=== PATIENT | male | born 1970 | race Caucasian/White ===

== ENCOUNTER → 2017-12-05 12:33 | Outpatient (CLI) | payer MEDICAID, SELFPAY ==
[2017-12-05 15:31] LABS: Alanine Aminotransferase 35 U/L (12-78); Albumin Level 4.4 gm/dL (3.4-5.0); Albumin/Globulin Ratio 1.5 (1.1-1.8); Alkaline Phosphatase 49 U/L (46-116); Anion Gap 15.1 mEq/L (5-15); Aspartate Amino Transferase 21 U/L (15-37); Bilirubin,Total 0.7 mg/dL (0.2-1.0); Blood Urea Nitrogen 11 mg/dL (7-18); Calcium 9.1 mg/dL (8.5-10.1); Carbon Dioxide 29 mmol/L (21.0-32.0); Chloride 103 mmol/L (98-107); Chol/HDL Ratio 5.5 (1-3.5); Cholesterol 264 mg/dL (140-200); Creatinine,Serum 0.98 mg/dL (0.70-1.30); Estimated Glomerular Filt Rate 82 ml/min (>60); GFR (African American) 99 ML/MIN (>60); Glucose 86 mg/dL (74-106); HDL Cholesterol 48 mg/dL (27-67); LDL Cholesterol 188 mg/dL (0-130); Potassium 4.1 mmoL/L (3.5-5.1); Sodium 143 mmol/L (136-145); Total Protein,Serum 7.4 gm/dL (6.4-8.2); Triglycerides 142 mg/dL (30-200); VLDL Cholesterol 28 mg/dL (0-40)
== END ==
PROVIDERS: PCP Nurse Practitioner Family; Visit Provider Nurse Practitioner Family
DX: Z00.00 Encounter for general adult medical examination without abnormal findings (principal)
CPT/HCPCS: 36415; 80053; 80061

== ENCOUNTER → 2018-02-16 08:05 | Outpatient (CLI) | payer MEDICAID, SELFPAY ==
[2018-02-16 08:28] LABS: Basophils % 0.6 % (0.1-2.0); Eosinophils # 0.4 K/mm3 (0.0-0.4); Eosinophils % 7.4 % (0.1-12.0); Hematocrit 43.9 % (42.0-52.0); Lymphocytes # 1.5 K/mm3 (0.7-4.5); Lymphocytes % 27.1 K/mm3 (10-50); Mean Corpuscular HGB Conc 34.2 g/dL (31.8-35.4); Mean Corpuscular Hemoglobin 30.5 pg (27.0-31.2); Mean Platelet Volume 7.1 fl (7.4-10.4); Monocytes # 0.5 K/mm3 (0.1-1.0); Monocytes % 8.2 % (1.7-9.3); Neutrophils # 3.2 K/mm3 (1.8-7.8); Neutrophils % 56.7 % (37.0-80.0); Platelet Count 239 K/mm3 (142-424); Red Blood Count 4.93 M/mm3 (4.60-6.20); Red Cell Distribution Width 12.4 % (11.5-17.5); White Blood Count 5.6 K/mm3 (4.8-10.8)
[2018-02-16 08:44] LABS: Alanine Aminotransferase 41 U/L (12-78); Albumin Level 4.1 gm/dL (3.4-5.0); Albumin/Globulin Ratio 1.1 (1.1-1.8); Alkaline Phosphatase 50 U/L (46-116); Bilirubin,Total 0.6 mg/dL (0.2-1.0); Blood Urea Nitrogen 15 mg/dL (7-18); Calcium 8.7 mg/dL (8.5-10.1); Carbon Dioxide 27 mmol/L (21.0-32.0); Chloride 103 mmol/L (98-107); Chol/HDL Ratio 6.7 (1-3.5); Cholesterol 262 mg/dL (140-200); Estimated Glomerular Filt Rate 80 ml/min (>60); GFR (African American) 97 ML/MIN (>60); Globulin 3.6 gm/dl (1.3-3.2); Glucose 105 mg/dL (74-106); HDL Cholesterol 39 mg/dL (27-67); LDL Cholesterol 203 mg/dL (0-130); Sodium 136 mmol/L (136-145); Thyroid Stimulating Hormone 0.78 uIU/ml (0.358-3.740); Total Protein,Serum 7.7 gm/dL (6.4-8.2); Triglycerides 100 mg/dL (30-200); VLDL Cholesterol 20 mg/dL (0-40)
[2018-02-16 08:48] LABS: Aspartate Amino Transferase 23 U/L (15-37)
[2018-02-17 18:36] LABS: Vitamin B12 967 pg/mL (232-1245); Vitamin D 25 Hydroxy 20.4 ng/mL (30.0-100.0)
== END ==
PROVIDERS: Visit Provider Nurse Practitioner Family
DX: Z00.00 Encounter for general adult medical examination without abnormal findings (principal); R20.2 Paresthesia of skin; E78.5 Hyperlipidemia, unspecified; I10 Essential (primary) hypertension
CPT/HCPCS: 36415; 80053; 80061; 82607; 82652; 84443; 85025

== ENCOUNTER → 2018-05-17 11:04 | Outpatient (CLI) | payer MEDICAID, SELFPAY ==
[2018-05-17 11:56] LABS: Basophils % 0.9 % (0.1-2.0); Eosinophils # 0.3 K/mm3 (0.0-0.4); Hematocrit 45.4 % (42.0-52.0); Hemoglobin 14.7 g/dL (14.1-18.0); Lymphocytes # 1.6 K/mm3 (0.7-4.5); Lymphocytes % 32.8 K/mm3 (10-50); Mean Corpuscular HGB Conc 32.5 g/dL (31.8-35.4); Mean Corpuscular Hemoglobin 29.8 pg (27.0-31.2); Mean Corpuscular Volume 91.7 fl (80-94); Mean Platelet Volume 7.2 fl (7.4-10.4); Monocytes # 0.5 K/mm3 (0.1-1.0); Neutrophils # 2.5 K/mm3 (1.8-7.8); Neutrophils % 50.3 % (37.0-80.0); Platelet Count 234 K/mm3 (142-424); Red Blood Count 4.95 M/mm3 (4.60-6.20); Red Cell Distribution Width 12.6 % (11.5-17.5); White Blood Count 4.9 K/mm3 (4.8-10.8)
[2018-05-17 12:57] LABS: Chol/HDL Ratio 5.7 (1-3.5); Cholesterol 261 mg/dL (140-200); HDL Cholesterol 46 mg/dL (27-67); LDL Cholesterol 202 mg/dL (0-130); Triglycerides 67 mg/dL (30-200); VLDL Cholesterol 13 mg/dL (0-40)
[2018-05-18 20:06] LABS: Vitamin D 25 Hydroxy 26.9 ng/mL (30.0-100.0)
== END ==
PROVIDERS: Visit Provider Nurse Practitioner Family
DX: Z00.00 Encounter for general adult medical examination without abnormal findings (principal); E78.5 Hyperlipidemia, unspecified; I10 Essential (primary) hypertension; E55.9 Vitamin D deficiency, unspecified
CPT/HCPCS: 36415; 80061; 82652; 85025

== ENCOUNTER → 2018-05-28 10:08 | Outpatient (CLI) | payer MEDICAID, SELFPAY ==
[2018-05-28 12:22] LABS: Alanine Aminotransferase 41 U/L (12-78); Albumin/Globulin Ratio 1.3 (1.1-1.8); Alkaline Phosphatase 44 U/L (46-116); Anion Gap 11.3 mEq/L (5-15); Aspartate Amino Transferase 23 U/L (15-37); Bilirubin,Total 0.9 mg/dL (0.2-1.0); Blood Urea Nitrogen 11 mg/dL (7-18); Calcium 9.1 mg/dL (8.5-10.1); Carbon Dioxide 27 mmol/L (21.0-32.0); Chloride 105 mmol/L (98-107); Creatinine,Serum 0.85 mg/dL (0.70-1.30); Estimated Glomerular Filt Rate 96 ml/min (>60); GFR (African American) 116 ML/MIN (>60); Globulin 3.2 gm/dl (1.3-3.2); Glucose 99 mg/dL (74-106); Potassium 4.3 mmoL/L (3.5-5.1); Sodium 139 mmol/L (136-145); Total Protein,Serum 7.2 gm/dL (6.4-8.2)
== END ==
PROVIDERS: Visit Provider Nurse Practitioner Family
DX: E78.5 Hyperlipidemia, unspecified (principal)
CPT/HCPCS: 36415; 80053

== ENCOUNTER → 2018-06-13 17:02 | Outpatient (CLI) | payer OTHER, MEDICAID, SELFPAY ==
--- NOTE | 2018-06-13 17:10 | XR_ITS ---
XR shoulder LT min 2V COMPARISON: None HISTORY: Left shoulder pain after injury TECHNIQUE: 3 views left shoulder FINDINGS: The clavicle is intact and the AC joint appears normal. Humeral head and glenoid appear normal and there are no soft tissue calcifications. There is a lateral downsloping acromion process which could predispose to some degree of impingement syndrome and suggest clinical correlation. IMPRESSION: Possible impingement syndrome otherwise negative left shoulder
--- NOTE | 2018-06-13 17:10 | XR_ITS ---
EXAM: XR cervical spine 5V HISTORY: Generalized neck pain COMPARISON: None HISTORY: TECHNIQUE: AP lateral and oblique views and odontoid view FINDINGS: There is normal curvature and alignment. C1-C7 appear intact. Disc spaces are well-maintained throughout. Oblique films show normal neural foramina bilaterally. The prevertebral soft tissues are normal and the odontoid is normal. IMPRESSION: Negative cervical spine
== END ==
PROVIDERS: Visit Provider Internal Medicine Adolescent Medicine
DX: S46.012A Strain of muscle(s) and tendon(s) of the rotator cuff of left shoulder, initial encounter (principal); M54.2 Cervicalgia
CPT/HCPCS: 72050; 73030

== ENCOUNTER 2018-07-25 13:00 | Outpatient (RCR) | payer OTHER, SELFPAY ==
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
== END 2018-07-25 13:01 | disposition home or self-care (01) ==
LOC: PT 13:00
PROVIDERS: Family Provider Internal Medicine Adolescent Medicine; PCP Nurse Practitioner Family; Visit Provider Internal Medicine Adolescent Medicine
DX: M54.2 Cervicalgia (principal); S46.012A Strain of muscle(s) and tendon(s) of the rotator cuff of left shoulder, initial encounter; S46.812A Strain of other muscles, fascia and tendons at shoulder and upper arm level, left arm, initial encounter
CPT/HCPCS: 97010; 97014; 97110; 97140; 97163; 97164; G0283

== ENCOUNTER 2018-07-25 14:00 | Outpatient (RCR) | payer OTHER, SELFPAY ==
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
== END 2018-07-25 14:01 | disposition home or self-care (01) ==
LOC: OT 14:00
PROVIDERS: Family Provider Internal Medicine Adolescent Medicine; PCP Nurse Practitioner Family; Visit Provider Internal Medicine Adolescent Medicine
DX: M25.512 Pain in left shoulder (principal)
CPT/HCPCS: 97014; 97033; 97110; 97164; 97166; G0283

== ENCOUNTER 2024-11-27 10:33 | Emergency (ER) | payer OTHER, SELFPAY ==
[2024-11-27 10:56] VITALS: BP 167/114; PULSE 86; RESP 18; TEMP 36.7; O2SAT 95; BMI 25.0
[2024-11-27 11:03] LABS: UTC Influenza A Antigen Positive (Negative); UTC Influenza B Antigen Negative (Negative)
--- NOTE | 2024-11-27 11:07 | ED_ITS ---
Discharge Plan Disposition Patient Disposition: Home, Self-Care Condition: Good Prescriptions Prescriptions: New benzonatate 100 mg capsule 100 mg PO TIDP PRN (Reason: Cough) Qty: 30 0RF oseltamivir [Tamiflu] 75 mg capsule 75 mg PO BID 5 Days Qty: 10 0RF ondansetron 4 mg Tablet,Disintegrating 4 mg PO Q8H PRN (Reason: Nausea) Qty: 12 0RF Referrals Follow up/Referrals: Po Santoyo MD [Primary Care Provider] - See instructions Activity Restrictions/Add. Instructions Additional Instructions/Restrictions: Drink plenty of fluids. Take tylenol or ibuprofen for pain or fever. Take the medications as directed. Follow up with your regular doctor. GO TO THE ER FOR ANY WORSENING SYMPTOMS Clinical Impressions Clinical Impression: Influenza A Instructions Patient Instructions: Influenza, DI for Influenza -- Adult, Ondansetron, Oseltamivir Print Language Print Language: Slovenian Discharge ED Provider: Ozzy Heard [facility] General Stated complaint: chest congestion, cramps, chills, aches, diarrhea Mode of Arrival: Ambulatory Source of Information: Patient Time Seen by Provider: 11/27/24 11:04 Description of Symptoms (Recalled from Triage Doc. by RN): FLU S/S, FEVER 101.2 HEENT Symptoms (Recalled from RN notes): Yes Resp Symptoms (Recalled from RN notes): Yes Skin Symptoms (Recalled from RN notes): No MS Symptoms (Recalled from RN notes): No Functional Status (Recalled from RN notes): WNL Related Data Previous Rx's ?Medication ?Instructions ?Recorded benzonatate 100 mg capsule 100 mg PO TIDP PRN Cough #30 caps 11/27/24 ondansetron 4 mg disintegrating 4 mg PO Q8H PRN Nausea #12 tabs 11/27/24 tablet oseltamivir 75 mg capsule (Tamiflu) 75 mg PO BID 5 days #10 caps 11/27/24 Allergies Allergy/AdvReac Type Severity Reaction Status Date / Time AMOXICILLIN Allergy Unknown HIVES Uncoded 11/14/17 15:42 PCN OK Worker's Comp Is this a Worker's Comp case?: No [facility] Disclaimer: The information contained in this section may have been updated after the patient was seen, as this information can be updated by other users. Social History Smoking Status: Never smoker alcohol intake: never current occupational status: employed Travel in the last 8 weeks: None ROS Obtained: Yes All systems reviewed & no additional complaints except as documented Constitutional Constitutional: Reports chills and Reports fever(s) Eyes Eyes: Denies eye discharge ENT Ears, Nose, Mouth, and Throat: Reports as per HPI Cardiovascular Cardiovascular: Denies chest pain Respiratory Respiratory: Denies chest congestion and Reports cough Gastrointestinal Gastrointestingal: Reports nausea; Denies abdominal pain, constipation, cramping, diarrhea or vomiting Musculoskeletal Musculoskeletal: Denies arthralgias Integumentary/Breasts Skin/Breast: Denies rash Neurologic Neurologic: Denies paresthesias Physical Exam General General appearance: alert and in no apparent distress Eye Eye exam: Present normal appearance, PERRL and EOMI ENT ENT exam: Present mucous membranes moist and normal external ear exam Expanded ENT Exam External ear exam: Present normal external inspection TM/Canal exam: Bilateral TM: erythema and bulging Nose exam: Absent sinus tenderness Nasal speculum exam: Bilateral: normal Mouth exam: Present normal external inspection; Absent drooling Teeth exam: Present normal inspection Throat exam: Present tonsillar erythema and tonsillomegaly Neck Neck exam: Present normal inspection, full ROM and trachea midline; Absent tenderness, lymphadenopathy or thyromegaly Chest Chest inspection: Present normal inspection and symmetric chest wall rise; Absent tenderness or rash Respiratory Respiratory exam: Present normal lung sounds bilaterally; Absent respiratory distress, wheezes, stridor or accessory muscle use Cardiovascular Cardiovascular exam: Present regular rate, normal rhythm and normal heart sounds Abdominal Exam Abdominal exam: Present soft; Absent distention, tenderness, guarding, rebound or rigidity Extremities Exam Extremities exam: Present normal inspection, full ROM and normal capillary refill; Absent tenderness or calf tenderness Back Exam Back exam: Present normal inspection and full ROM; Absent tenderness Neurological Exam Neurological exam: Present alert and oriented X3 Psychiatric Psychiatric exam: Present normal affect and normal mood Skin Skin exam: Present warm, dry, intact and normal color Lymphatic Lymphatic Findings: no adenopathy Medical Decision Making Medical Records Medical records reviewed: No I reviewed the patient's medical records. Screening: Per USPSTF and CDC recommendations, given the prevalence of disease in our region, it is our hospital?s policy to screen for HIV and viral Hepatitis for all patients aged 18 and over and those with ongoing risk factors. Luis Angel Inquiry Pt receiving controlled substance: No Vital Signs: 11/27/24 10:56 Temperature 98.1 F Temperature Source Oral Pulse Rate [Right Radial] 86 Respiratory Rate 18 Blood Pressure [Left Arm] 167/114 H Blood Pressure Mean [Left Arm] 131 02 Sat by Pulse Oximetry 95 Lab Data Lab Results 11/27/24 10:54: Influenza Type A Ag Positive A, Influenza Type B Ag Negative
[2024-11-27 11:55] VITALS: BP 167/114; PULSE 86; RESP 18; TEMP 36.7
== END 2024-11-27 12:04 | disposition home or self-care (01) ==
PROVIDERS: Emergency Provider Nurse Practitioner Family; PCP Internal Medicine Adolescent Medicine
DX: J09.X2 Influenza due to identified novel influenza A virus with other respiratory manifestations (principal); R50.9 Fever, unspecified; R05.9 Cough, unspecified; R11.0 Nausea
CPT/HCPCS: 87804; 99212; G0381